=== PATIENT | female | born 1970 | race Caucasian/White ===

== ENCOUNTER → 2016-12-09 | Outpatient (CLI) | payer OTHER ==
[~2016-12-09] MED LIST: CHOL100010 PO; CYM/30 PO; DICL1GEL12 TD; ESCI10TA17 PO; ESCI1TAB6 PO; FING1CAP PO; LEVO50TA6 PO; LISI20TA PO; PANT40TA PO; RIZA1TAB11 PO; TEMA15CA4 PO; TOLT2TAB9 PO; TOPI25TA99 PO
[2016-12-09 12:44] LABS: BLOOD UREA NITROGEN 19 mg/dl (7-18); BUN/CREATININE RATIO 19.8 (10-20); CALCIUM 8.9 mg/dl (8.5-10.1); CARBON DIOXIDE 29 mmol/L (21-32); CHLORIDE 103 mmol/L (98-107); CREATININE 0.96 mg/dl (0.60-1.20); GLUCOSE 97 mg/dl (70-99); POTASSIUM 3.5 mmol/L (3.5-5.1); SODIUM 140 mmol/L (136-145)
== END | disposition home or self-care (01) ==
LOC: C.LABBFT 10:10
PROVIDERS: ATTEND Nurse Practitioner
DX: E03.9 Hypothyroidism, unspecified (principal)

== ENCOUNTER → 2017-02-07 | Outpatient (CLI) | payer OTHER ==
[~2017-02-07] MED LIST changes: +GADAVIST IV PRN
--- NOTE | 2017-02-07 08:33 | DIAGNOSTIC IMAGING REPORT ---
MRI OF THE BRAIN WITHOUT AND WITH IV CONTRAST CLINICAL HISTORY: MS NUMBNESS, TINGLING, WEAKNESS. FATIGUE. COMPARISON STUDY: 02/17/2016 TECHNIQUE: MRI of the brain was performed from the vertex to the skull base utilizing various T1 and T2 weighted sequences. Following the IV administration of 9 mL of Gadavist contrast, additional enhanced images were obtained. FINDINGS: Sagittal T1, axial diffusion, proton density and T2 weighted axial, coronal FLAIR, and pre and post axial T1-weighted images were acquired. These were supplemented with post gadolinium coronal T1 weighted images. No intra or extra-axial mass lesions are visualized. Axial diffusion-weighted images reveal no evidence of acute or subacute infarction. There is no evidence of ventricular dilatation. Proton density T2-weighted and FLAIR images reveal multiple foci of increased T2 signal within the periventricular white matter. Many of these have an orientation perpendicular to the ependymal surface. The findings are consistent with the clinical diagnosis of multiple sclerosis. There is no pathologic plaque enhancement. The distribution of the plaques appear similar to the preceding examination. There are no abnormal flow voids. There is no evidence of pathologic enhancement. IMPRESSION: No sitting in change compared the preceding study. Multiple white matter lesions consistent with multiple sclerosis plaques. No evidence of pathologic enhancement Electronically signed by: Refugio Chowdary M.D. 02/07/2017 8:32 AM Dictated Date/Time: 02/07/2017 8:29 AM
== END | disposition home or self-care (01) ==
LOC: C.MRIBC 07:28
PROVIDERS: ATTEND Psychiatry & Neurology Neurology
DX: G35 Multiple sclerosis (principal)

== ENCOUNTER → 2017-03-04 | Outpatient (CLI) | payer OTHER ==
[~2017-03-04] MED LIST changes: -GADAVIST IV PRN
--- NOTE | 2017-03-08 14:58 | MAMMOGRAPHY REPORT ---
BILATERAL DIGITAL SCREENING MAMMOGRAM TOMOSYNTHESIS WITH CAD: 03/04/2017 CLINICAL HISTORY: Routine screening. Patient has no complaints. TECHNIQUE: Breast tomosynthesis in addition to standard 2D mammography was performed. Current study was also evaluated with a Computer Aided Detection (CAD) system. COMPARISON: Comparison is made to exams dated: 02/26/2016 mammogram, 02/24/2015 mammogram, and 02/09/20 14 mammogram - [facility]. BREAST COMPOSITION: The tissue of both breasts is almost entirely fatty. FINDINGS: No suspicious masses, calcifications, or areas of architectural distortion are noted in e ither breast. There has been no significant interval change compared to prior exams. IMPRESSION: ACR BI-RADS CATEGORY 1: NEGATIVE There is no mammographic evidence of malignancy. A 1 year screening mammogram is recommended. The p atient will receive written notification of the results. Approximately 10% of breast cancers are not detected with mammography. A negative mammographic repor t should not delay biopsy if a clinically suggestive mass is present. Gema Henley M.D. ah/:03/04/2017 16:22:59 Photoengraver: Franc FLORES(Arlen)(F[place]), [facility] letter sent: Normal 1/2 BI-RADS Code: ACR BI-RADS Category 1: Negative
== END | disposition home or self-care (01) ==
LOC: C.MAMM 15:27
PROVIDERS: ATTEND Nurse Practitioner
DX: Z12.31 Encounter for screening mammogram for malignant neoplasm of breast (principal)

== ENCOUNTER → 2017-06-27 | Outpatient (CLI) | payer OTHER ==
[2017-06-27 12:13] LABS: HEMATOCRIT 40.4 % (37-47); MEAN CELL VOLUME 92.2 fL (80-100); MEAN CORPUSCULAR HEMOGLOBIN 30.6 pg (25-34); MEAN CORPUSCULAR HGB CONC 33.2 g/dl (32-36); MEAN PLATELET VOLUME 10.2 fL (7.4-10.4); PLATELET COUNT 264 K/uL (130-400); RED BLOOD COUNT 4.38 M/uL (4.2-5.4); WHITE BLOOD COUNT 7.14 K/uL (4.8-10.8)
[2017-06-27 12:51] LABS: AST/SGOT 18 U/L (15-37); BLOOD UREA NITROGEN 16 mg/dl (7-18); BUN/CREATININE RATIO 17.6 (10-20); CALCIUM 9.2 mg/dl (8.5-10.1); CARBON DIOXIDE 28 mmol/L (21-32); CHLORIDE 103 mmol/L (98-107); CREATININE 0.89 mg/dl (0.60-1.20); GLUCOSE 105 mg/dl (70-99); HDL CHOLESTEROL 56 mg/dl; POTASSIUM 3.7 mmol/L (3.5-5.1); SODIUM 140 mmol/L (136-145)
[2017-06-27 13:02] LABS: ALB/GLOB RATIO 1.1 (0.9-2); ALKALINE PHOSPHATASE 71 U/L (45-117); ALT/SGPT 28 U/L (12-78); CHOLESTEROL 174 mg/dl (0-200); CHOLESTEROL/HDL RATIO 3.1; LDL CHOLESTEROL CALCULATED 90 mg/dl; TRIGLYCERIDES 141 mg/dl (0-150); VERY LOW DENSITY LIPOPROT CALC 28 mg/dl
== END | disposition home or self-care (01) ==
LOC: C.LABBFT 07:43
PROVIDERS: ATTEND Nurse Practitioner
DX: D50.9 Iron deficiency anemia, unspecified (principal); Z13.220 Encounter for screening for lipoid disorders; I10 Essential (primary) hypertension; E03.9 Hypothyroidism, unspecified; E55.9 Vitamin D deficiency, unspecified

== ENCOUNTER → 2017-08-18 | Outpatient (CLI) | payer OTHER ==
[2017-08-23 23:13] LABS: JCV ANTIBODY NEGATIVE; JCV INDEX 0.15
== END | disposition home or self-care (01) ==
LOC: C.LABBFT 11:47
PROVIDERS: ATTEND Nurse Practitioner
DX: G89.29 Other chronic pain (principal)

== ENCOUNTER → 2017-11-29 | Outpatient (CLI) | payer OTHER | END | disposition home or self-care (01) | LOC: C.PAPS 18:15 | PROVIDERS: ATTEND Obstetrics & Gynecology | DX: Z12.4 Encounter for screening for malignant neoplasm of cervix (principal) ==

== ENCOUNTER → 2018-01-17 | Outpatient (CLI) | payer OTHER ==
[2018-01-17 10:19] LABS: BASO % 0.3 %; BASO ABS # 0.02 K/uL (0-0.2); EOS ABS # 0.12 K/uL (0-0.5); HEMATOCRIT 38.2 % (37-47); HEMOGLOBIN 12.9 g/dL (12.0-16.0); IG# 0.03 K/uL (0.00-0.02); LYMPH % 7.6 %; LYMPH ABS # 0.45 K/uL (1.2-3.4); MEAN CELL VOLUME 90.1 fL (80-100); MEAN CORPUSCULAR HEMOGLOBIN 30.4 pg (25-34); MEAN CORPUSCULAR HGB CONC 33.8 g/dl (32-36); MEAN PLATELET VOLUME 9.7 fL (7.4-10.4); MONO % 8.3 %; MONO ABS # 0.49 K/uL (0.11-0.59); NEUT % 81.3 %; NEUT ABS # 4.82 K/uL (1.4-6.5); PLATELET COUNT 255 K/uL (130-400); RED CELL DISTRIBUTION WIDTH CV 13.6 % (11.5-14.5); RED CELL DISTRIBUTION WIDTH SD 44.9 fL (36.4-46.3); WHITE BLOOD COUNT 5.93 K/uL (4.8-10.8)
[2018-01-17 10:51] LABS: ALBUMIN 3.8 gm/dl (3.4-5.0); ALT/SGPT 31 U/L (12-78); AST/SGOT 18 U/L (15-37); BLOOD UREA NITROGEN 16 mg/dl (7-18); CALCIUM 9.1 mg/dl (8.5-10.1); CARBON DIOXIDE 30 mmol/L (21-32); CHOLESTEROL 157 mg/dl (0-200); CREATININE 0.99 mg/dl (0.60-1.20); GLUCOSE 96 mg/dl (70-99); POTASSIUM 3.2 mmol/L (3.5-5.1); SODIUM 137 mmol/L (136-145)
[2018-01-17 11:03] LABS: ALKALINE PHOSPHATASE 69 U/L (45-117); LDL CHOLESTEROL CALCULATED 66 mg/dl; TOTAL PROTEIN 7.6 gm/dl (6.4-8.2)
== END | disposition home or self-care (01) ==
LOC: C.LAB1850 09:39
PROVIDERS: ATTEND Nurse Practitioner
DX: D50.9 Iron deficiency anemia, unspecified (principal); R73.01 Impaired fasting glucose; I10 Essential (primary) hypertension; E03.9 Hypothyroidism, unspecified; E55.9 Vitamin D deficiency, unspecified

== ENCOUNTER → 2018-01-24 | Outpatient (CLI) | payer OTHER ==
--- NOTE | 2018-01-24 09:27 | DIAGNOSTIC IMAGING REPORT ---
L FINGER(S) MIN 2 VIEWS ROUTINE CLINICAL HISTORY: M79.645 Pain of left middle [id number] pain COMPARISON: None. DISCUSSION: The bones and joint spaces appear intact. There is no evidence of fracture, dislocation or bony disease. There is no evidence for soft tissue swelling. IMPRESSION: Negative study. The above report was generated using voice recognition software. It may contain grammatical, syntax or spelling errors. Electronically signed by: Hugo Murphy M.D. 01/24/2018 9:26 AM Dictated Date/Time: 01/24/2018 9:25 AM
== END | disposition home or self-care (01) ==
LOC: C.RAD1850 09:05
PROVIDERS: ATTEND Nurse Practitioner
DX: M79.645 Pain in left finger(s) (principal)

== ENCOUNTER → 2018-02-15 | Outpatient (CLI) | payer OTHER ==
--- NOTE | 2018-02-15 09:17 | DIAGNOSTIC IMAGING REPORT ---
Brain MRI WITHOUT CONTRAST HISTORY: G35 Multiple sclerosis. Follow-up. TECHNIQUE: Multiplanar multisequence MRI of the brain was performed without the use of contrast. COMPARISON STUDY: Brain MRI 02/07/2017. FINDINGS: No areas of restricted diffusion to suggest acute infarction. Punctate areas of T2 shine through on the DWI sequence are identified within the right parietal lobe. A few small focal defects are identified within the corpus callosum, unchanged. Multiple scattered foci of T2 hyperintensity are again noted within the periventricular white matter of the supratentorial and infratentorial brain consistent with the patient's history of multiple sclerosis. These are not simply changed in size or number compared to the prior study. Evaluation for active demyelination is nondiagnostic due to the lack of intravenous contrast. Stable white matter plaque within the right cerebellar hemisphere. There is no mass, hematoma, or midline shift. The paranasal sinuses and mastoid air cells are clear. The major vascular flow-voids at the skull base are well-maintained. The ventricles and sulci are within normal limits. The orbits are unremarkable. IMPRESSION: Overall, no significant change in the scattered white matter plaques consistent with the patient's history of multiple sclerosis. No new white matter plaques identified. Electronically signed by: Ruben Ferrara M.D. 02/15/2018 9:16 AM Dictated Date/Time: 02/15/2018 9:07 AM
== END | disposition home or self-care (01) ==
LOC: C.MRIBC 08:02
PROVIDERS: ATTEND Psychiatry & Neurology Neurology
DX: G35 Multiple sclerosis (principal)